=== PATIENT | male | born 1990 | race Caucasian/White ===

== ENCOUNTER 2017-11-18 07:30 | Emergency (ER) | payer BC ==
[~2017-11-18] VITALS: Ht 180.3 cm; Wt 108.9 kg
[2017-11-18] MEDS ORDERED: DEXAMETHASONE SOD PHOS 10 MG/ML VIAL PO ONE (08:00)
[2017-11-18] MEDS ORDERED: IBUPROFEN 600 MG TABLET. PO ONE (08:00)
--- NOTE | 2017-11-18 08:07 | PHYS DOC ---
Past History Past Medical History: Depression Past Surgical History: No Surgical History Alcohol Use: None Drug Use: Marijuana Adult General Chief Complaint Chief Complaint: FEVER HPI HPI Patient is a 27-year-old who presents with complaints of congestion and sore throat and fevers that has been going on for 2 days. Patient does not have any significant previous medical history, no known sick contacts, patient denies any rashes, neck pain, headache, vomiting, diarrhea, recent travel. Review of Systems Review of Systems Constitutional: Fever Eyes: Denies change in visual acuity, redness, or eye pain [] HENT: Yes to nasal congestion and sore throat. No ear pain. Respiratory: Denies shortness of breath, no pain with deep inspiration Cardiovascular: No chest pain GI: Denies abdominal pain, nausea, vomiting, bloody stools or diarrhea [] : Denies dysuria or hematuria [] Musculoskeletal: Denies back pain or joint pain [] Integument: Denies rash or skin lesions [] Neurologic: Denies headache, focal weakness or sensory changes [] All other systems were reviewed and found to be within normal limits, except as documented in this note. Current Medications Current Medications Current Medications Medications (Trade) Dose Ordered Sig/Rancho Start Time Stop Time Status Last Admin Dose Admin Dexamethasone Sodium Phosphate (Decadron) 10 mg 1X ONCE 11/18/17 08:00 11/18/17 08:02 DC Ibuprofen (Motrin) 600 mg 1X ONCE 11/18/17 08:00 11/18/17 08:02 DC Allergies Allergies Allergies Coded Allergies Type Severity Reaction Last Updated Verified No Known Drug Allergies 11/18/17 No Physical Exam Physical Exam Constitutional: Well developed, well nourished, no acute distress, non-toxic appearance. [] HENT: Normocephalic, atraumatic, bilateral external ears normal, oropharynx moist with mild swelling and erythema, no oral exudates, nose normal with rhinorrhea. [] Eyes: EOMI, conjunctiva normal, no discharge. [] Neck: Normal range of motion, no tenderness, supple, no stridor. No meningeal signs, no LAD Cardiovascular:Heart rate regular rhythm, no murmur, equal pulses, normal perfusion Lungs & Thorax: Increased breathing sounds of the left lung base, no tachypnea, no wheezing, no rales, no rhonchi Abdomen: Soft, nontender nondistended Skin: Warm, dry, no erythema, no rash. [] Back: No tenderness, no CVA tenderness. [] Extremities: No tenderness, no cyanosis, ROM intact, no edema. [] Neurologic: Alert and oriented X 3, normal motor function, ambulates in the ED with normal gait and without assistance, no focal deficits noted. [] Psychologic: Affect normal, judgement normal, mood normal. [] Current Patient Data Vital Signs Vital Signs Date Time Temp Pulse Resp B/P (MAP) Pulse Ox O2 Delivery O2 Flow Rate FiO2 11/18/17 07:35 103.1 99 20 96 Room Air EKG EKG [] Radiology/Procedures Radiology/Procedures IMPRESSION: Minimal prominent appearing bilateral perihilar bronchovascular markings likely bronchitis.[] Course & Med Decision Making Course & Med Decision Making Pertinent Labs and Imaging studies reviewed. (See chart for details) [] Dragon Disclaimer Dragon Disclaimer This electronic medical record was generated, in whole or in part, using a voice recognition dictation system. Departure Departure: Impression: Primary Impression: Fever Additional Impression: Pharyngitis Disposition: 01 HOME, SELF-CARE Referrals: PCP,NO (PCP) Patient Instructions: Fever, Viral and Bacterial Pharyngitis Additional Instructions: You may take 650 mg Tylenol every 4-6 hours and or ibuprofen 400 mg every 6 hours to control fever Please follow-up with Dr. fletcher for recheck and reevaluation in 3-5 days. Please return to the emergency department if your symptoms worsen or new concerning symptoms develop Scripts Penicillin V Potassium (PENICILLIN V POTASSIUM) 500 Mg Tablet 1 TAB PO TID, #30 TAB Prov: Marianne MARQUEZ MD 11/18/17 Problem Qualifiers Marianne MARQUEZ MD Nov 18, 2017 08:07
--- NOTE | 2017-11-18 08:20 | RAD ---
EXAM: CHEST 2 VIEWS History: Fever for 2 days COMPARISON: None available. TECHNIQUE: PA and lateral chest radiographs FINDINGS: The cardiomediastinal silhouette is within normal limits. Minimal prominent appearing bilateral perihilar bronchovascular markings. The costophrenic sulci are clear and well demarcated bilaterally. IMPRESSION: Minimal prominent appearing bilateral perihilar bronchovascular markings likely bronchitis.
[2017-11-18] MEDS ORDERED: PENI500T PO (08:33)
[2017-11-18 08:52] VITALS: BP 142/80
== END 2017-11-18 08:50 | disposition home or self-care (01) ==
LOC: ER 07:30
DX: J02.9 Acute pharyngitis, unspecified (principal); R09.81 Nasal congestion; F12.10 Cannabis abuse, uncomplicated
CPT/HCPCS: 71020; 87880; 99284; J1100

== ENCOUNTER 2018-09-21 15:13 | Emergency (ER) | payer BC ==
[~2018-09-21] VITALS: Ht 180.3 cm; Wt 108.9 kg
[~2018-09-21 15:13] MED LIST: PENI500T PO
[2018-09-21 15:33] VITALS: BP 120/67
[2018-09-21] MEDS ORDERED: PRED50TA PO (15:33)
[2018-09-21] MEDS ORDERED: IBUPROFEN 600 MG TABLET. PO ONE (15:45)
--- NOTE | 2018-09-21 16:03 | PHYS DOC ---
Past History Past Medical History: No Pertinent History Past Surgical History: No Surgical History Alcohol Use: None Drug Use: None Adult General Chief Complaint Chief Complaint: BACK PAIN OR INJURY HPI HPI Patient is a 28-year-old male presenting with back injury. He was moving some rocks in his backyard yesterday he felt some pulling and sharp pain in his mid back. He says he had a remote lifting injury back in high school. He feels pain shooting down into both thighs at times insert in positions no bowel or bladder incontinence no saddle anesthesia pain does not shoot all the way to the feet just to the buttocks and thighs. No actual trauma. Using Tylenol which actually did help the pain somewhat Review of Systems Review of Systems Constitutional: Denies fever or chills [] Eyes: Denies change in visual acuity, redness, or eye pain [] Musculoskeletal: Integument: Denies rash or skin lesions [] Neurologic: Denies headache, focal weakness or sensory changes [] Endocrine: Denies polyuria or polydipsia [] All other systems were reviewed and found to be within normal limits, except as documented in this note. Current Medications Current Medications Current Medications Medications (Trade) Dose Ordered Sig/Rancho Start Time Stop Time Status Last Admin Dose Admin Ibuprofen (Motrin) 600 mg 1X ONCE 09/21/18 15:45 09/21/18 15:46 DC 09/21/18 15:39 600 MG Allergies Allergies Allergies Coded Allergies Type Severity Reaction Last Updated Verified No Known Drug Allergies 11/18/17 No Physical Exam Physical Exam Constitutional: Well developed, well nourished, no acute distress, non-toxic appearance. [] HENT: Normocephalic, atraumatic, bilateral external ears normal, oropharynx moist, no oral exudates, nose normal. [] Eyes: PERRLA, EOMI, conjunctiva normal, no discharge. [] Neck: Normal range of motion, no tenderness, supple, no stridor. [] Pulmonary: Normal respiratory effort no increased work of breathing no obvious chest wall trauma Skin: Warm, dry, no erythema, no rash. [] Back: There is mid line tenderness as well as left paraspinous tenderness on the lower back no deformity or step-off Extremities: No tenderness, no cyanosis, no clubbing, ROM intact, no edema. [] Neurologic: Alert and oriented X 3, normal motor function, normal sensory function, no focal deficits noted. [] Psychologic: Affect normal, judgement normal, mood normal. [] Current Patient Data Vital Signs Vital Signs Date Time Temp Pulse Resp B/P (MAP) Pulse Ox O2 Delivery O2 Flow Rate FiO2 09/21/18 15:33 97.6 68 20 98 Room Air EKG EKG [] Radiology/Procedures Radiology/Procedures [] Course & Med Decision Making Course & Med Decision Making Pertinent Labs and Imaging studies reviewed. (See chart for details) Low back pain no signs of cauda equina clinically prescription for prednisone was given for anti-inflammatory effect. Return precautions were discussed patient was understanding short time off work given. Dragon Disclaimer Dragon Disclaimer This electronic medical record was generated, in whole or in part, using a voice recognition dictation system. Departure Departure: Impression: Primary Impression: Back pain Disposition: 01 HOME, SELF-CARE Condition: STABLE Patient Instructions: Back Pain, Adult, [id number] Scripts Prednisone (PREDNISONE) 50 Mg Tablet 1 TAB PO DAILY, #5 TAB Prov: ACE LUNSFORD MD 09/21/18 ACE LUNSFORD MD Sep 21, 2018 16:03
== END 2018-09-21 15:45 | disposition home or self-care (01) ==
LOC: ER 15:13
DX: M54.5 Low back pain (principal); G89.11 Acute pain due to trauma; X50.0XXA Overexertion from strenuous movement or load, initial encounter; Y93.89 Activity, other specified; Y92.89 Other specified places as the place of occurrence of the external cause; Y99.8 Other external cause status
CPT/HCPCS: 99283

== ENCOUNTER → 2018-09-23 | Outpatient (CLI) | payer BC ==
[2018-09-21 15:33] VITALS: BP 120/67
[~2018-09-23] MED LIST changes: +PRED50TA PO
--- NOTE | 2018-09-23 16:56 | RAD ---
History: Low back pain after lifting 3 days ago. Comparison: None. Findings: AP, lateral, and bilateral oblique views of the lumbar spine, 5 images. 5 lumbar type vertebral bodies are present. No acute fracture or acute malalignment is identified. No significant degeneration is seen. No spondylolysis or spondylolisthesis is appreciated. Impression: Unremarkable lumbar spine radiographs. Electronically signed by: Ken Mendenhall MD (09/23/2018 4:53 PM) [id number]
== END | disposition home or self-care (01) ==
LOC: PMG 11:33
PROVIDERS: ATTEND Neuromusculoskeletal Medicine & OMM
DX: M54.5 Low back pain (principal)
CPT/HCPCS: 72110